=== PATIENT | female | born 1945 | race Caucasian/White ===

== ENCOUNTER → 2016-08-11 | Outpatient (CLI) | payer OTHER ==
[2016-08-11 14:21] LABS: SYNOVIAL FLUID APPEARANCE HAZY; SYNOVIAL FLUID COLOR YELLOW; SYNOVIAL FLUID MONONUC RELAT 75.7 %; SYNOVIAL FLUID POLYNUC RELAT 24.3 %
[2016-08-12 19:32] LABS: LYME DNA PCR CSF OR SYNOVIAL Not detected (Not Detected); LYME DNA SOURCE Synovial Fluid
== END | disposition home or self-care (01) ==
LOC: C.LABBC 12:08
PROVIDERS: ATTEND Orthopaedic Surgery
DX: M25.462 Effusion, left knee (principal)

== ENCOUNTER → 2016-09-25 | Outpatient (CLI) | payer OTHER, MEDICARE ==
--- NOTE | 2016-09-25 11:20 | DIAGNOSTIC IMAGING REPORT ---
MRI OF THE LEFT KNEE CLINICAL HISTORY: Left knee pain. COMPARISON STUDY: No priors. TECHNIQUE: MRI of the left knee was performed utilizing proton density, T1, and T2-weighted sequences in the axial, sagittal, coronal planes. IV contrast was not administered for this examination. Note that interpretation is suboptimal without plain film correlate. FINDINGS: Menisci: There is maceration and extensive tearing involving the body and posterior horn of the medial meniscus which is slightly extruded. No flipped fragment is clearly seen. There is also tearing the body of the lateral meniscus, best seen on coronal image #16. Ligaments: The anterior and posterior cruciate ligaments are intact. The medial and lateral collateral ligaments are within normal limits. Extensor mechanism: The extensor mechanism is intact. Hoffa's fat pad is normal in appearance. Articular cartilage and bone: There is mild degenerative thinning along the weightbearing surface in both the medial lateral compartments. No full-thickness cartilage loss is identified and there is no reactive marrow edema. There is only mild degenerative thinning of the articular cartilage of the patellofemoral articulation. Normal marrow signal is preserved of the visualized bony structures. There are small marginal osteophytes. Joint effusion: There is a large joint effusion. Soft tissues: The musculature around the knee demonstrates symmetric atrophy. No intramuscular edema is identified. Mild prepatellar soft tissue swelling is noted. IMPRESSION: 1. Large joint effusion. 2. There is maceration and extensive degenerative tearing involving the body and posterior horn of the medial meniscus. 3. There is also tearing seen within the body of the lateral meniscus. 4. The cruciate ligaments and the collateral alignment are intact. 5. There is only mild degenerative cartilaginous thinning seen in all 3 compartments. No full-thickness cartilage loss is identified and there is no reactive marrow edema. Electronically signed by: Dez Lomax M.D. 09/25/2016 11:18 AM Dictated Date/Time: 09/25/2016 11:10 AM
== END | disposition home or self-care (01) ==
LOC: C.MRIBC 09:53
PROVIDERS: ATTEND Orthopaedic Surgery
DX: M25.562 Pain in left knee (principal); M25.462 Effusion, left knee; S83.282A Other tear of lateral meniscus, current injury, left knee, initial encounter; S83.242A Other tear of medial meniscus, current injury, left knee, initial encounter; X58.XXXA Exposure to other specified factors, initial encounter